=== PATIENT | female | born 1985 | race Caucasian/White ===

== ENCOUNTER 2017-10-01 14:58 | Emergency (ER) | payer OTHER ==
[~2017-10-01] VITALS: Ht 147.3 cm; Wt 49.9 kg
[~2017-10-01 14:58] MED LIST: BUTALB-APAP-CA1 EACH PO; SEIZURE MED
[2017-10-01] MEDS ORDERED: GERD MEDICATION (15:07)
[2017-10-01 15:17] LABS: ABSOLUTE BASOPHILS 0.1 thou/uL (0.0-0.2); ABSOLUTE EOSINOPHILS 0.2 thou/uL (0.0-0.7); ABSOLUTE LYMPHOCYTES 2.4 thou/uL (0.8-5.3); ABSOLUTE MONOCYTES 0.8 thou/uL (0.0-1.2); ABSOLUTE NEUTROPHILS 6.9 thou/uL (1.6-8.1); BASOPHILS 0.8 %; EOSINOPHILS 1.6 %; HEMATOCRIT 39.6 % (37.0-47.0); HEMOGLOBIN 13.6 gm/dL (12.0-15.0); MCH 33.2 pg (26.0-34.0); MCHC 34.3 g/dL (28.0-37.0); MCV 96.7 fL (80.0-100.0); MONOCYTES 7.9 %; MPV 8.3 fl. (7.2-11.1); NUCLEATED RBCS 0 /100WBC; PLATELET COUNT* 355 thou/uL (150-400); POLYS 66.7 %; RDW-CV 13.3 % (10.5-14.5); WBC 10.3 thou/uL (4.0-11.0)
[2017-10-01 15:35] LABS: ANION GAP 8 mmol/L (7-16); BUN 10 mg/dL (7-18); CALCIUM 8.5 mg/dL (8.5-10.1); CHLORIDE 103 mmol/L (98-107); CO2 30 mmol/L (21-32); CREATININE 0.9 mg/dL (0.6-1.3); GLUCOSE 93 mg/dL (70-99); POTASSIUM 3.3 mmol/L (3.5-5.1); SODIUM 141 mmol/L (136-145)
[2017-10-01 15:47] LABS: ALKALINE PHOSPHATASE 65 U/L (46-116); LIPASE 145 U/L (73-393); NT-PRO BRAIN NAT PEPTIDE 47 pg/mL (<300); SGOT 11 U/L (15-37); SGPT 16 U/L (30-65); TOTAL BILIRUBIN 0.3 mg/dL (<0.1-1.0); TOTAL PROTEIN 7.6 g/dL (6.4-8.2); TROPONIN-I LEVEL <0.06 ng/mL (<0.06)
[2017-10-01] MEDS ORDERED: NORCO 5-325 TA1 EACH PO (16:16)
[2017-10-01 16:28] VITALS: BP 128/82
--- NOTE | 2017-10-02 13:10 | EKG ---
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
== END 2017-10-01 16:28 | disposition home or self-care (01) ==
LOC: M.ERS 14:58
PROVIDERS: Emergency Medicine Emergency Medical Services
DX: R07.9 Chest pain, unspecified (principal); F17.210 Nicotine dependence, cigarettes, uncomplicated; R09.1 Pleurisy; K21.9 Gastro-esophageal reflux disease without esophagitis; G40.909 Epilepsy, unspecified, not intractable, without status epilepticus

== ENCOUNTER 2018-03-23 11:10 | Emergency (ER) | payer OTHER ==
[~2018-03-23] VITALS: Ht 147.3 cm; Wt 49.9 kg
[~2018-03-23 11:10] MED LIST changes: +GERD MEDICATION; +NORCO 5-325 TA1 EACH PO
[2018-03-23] MEDS ORDERED: SEIZURE MEDS PO (11:18)
[2018-03-23 11:51] LABS: ABSOLUTE BASOPHILS 0.1 thou/uL (0.0-0.2); ABSOLUTE EOSINOPHILS 0.5 thou/uL (0.0-0.7); ABSOLUTE LYMPHOCYTES 1.5 thou/uL (0.8-5.3); ABSOLUTE MONOCYTES 0.6 thou/uL (0.0-1.2); ABSOLUTE NEUTROPHILS 4.9 thou/uL (1.6-8.1); BASOPHILS 0.9 %; EOSINOPHILS 6.6 %; HEMATOCRIT 42.2 % (37.0-47.0); HEMOGLOBIN 14.1 gm/dL (12.0-15.0); MCH 32.6 pg (26.0-34.0); MCHC 33.3 g/dL (28.0-37.0); MONOCYTES 7.7 %; MPV 8.7 fl. (7.2-11.1); NUCLEATED RBCS 0 /100WBC; PLATELET COUNT* 342 thou/uL (150-400); POLYS 64.8 %; RBC 4.31 mil/uL (4.20-5.00); WBC 7.6 thou/uL (4.0-11.0)
[2018-03-23 11:52] LABS: URINE BLOOD 3+ (Negative); URINE CLARITY SL CLOUDY; URINE COLOR YELLOW; URINE GLUCOSE-RANDOM NEGATIVE (Negative); URINE KETONES NEGATIVE (Negative); URINE LEUKOCYTES-REFLEX TRACE (Negative); URINE PROTEIN 1+ (Negative); URINE SPECIFIC GRAVITY >= 1.030 (1.005-1.030)
[2018-03-23 11:56] LABS: ICTOTEST (BILI CONFIRMATORY) Negative (Negative); URINE BILIRUBIN 1+ (Negative); URINE NITRITE-REFLEX POSITIVE (Negative)
[2018-03-23 11:59] LABS: BACTERIA-REFLEX >30 Many /HPF (None Seen); MUCUS 4-6 Moderate strn/LPF (None Seen); SQUAMOUS >10 Many /LPF (0-3)
[2018-03-23 12:01] LABS: CALCIUM OXALATE 4-10 Moderate /LPF (None Seen); CASTS None Seen /LPF (None Seen); URINE RBC 3-10 Few /HPF (0-2)
[2018-03-23 12:08] LABS: CALCIUM 9.1 mg/dL (8.5-10.1); CREATININE 0.9 mg/dL (0.6-1.3); POTASSIUM 3.9 mmol/L (3.5-5.1)
[2018-03-23 12:12] LABS: ALBUMIN 3.6 g/dL (3.4-5.0); TOTAL BILIRUBIN 0.4 mg/dL (<0.1-1.0); TOTAL PROTEIN 7.2 g/dL (6.4-8.2)
[2018-03-23] MEDS ORDERED: PHENAZOPYRIDIN200 M2 PO (13:25)
[2018-03-23] MEDS ORDERED: BACTRIM DS TAB1 EACH PO (13:25)
[2018-03-23 13:34] VITALS: BP 108/53
== END 2018-03-23 13:34 ==
LOC: M.ERS 11:10
PROVIDERS: Emergency Medicine Emergency Medical Services
DX: N39.0 Urinary tract infection, site not specified (principal); K21.9 Gastro-esophageal reflux disease without esophagitis; G40.909 Epilepsy, unspecified, not intractable, without status epilepticus; F17.210 Nicotine dependence, cigarettes, uncomplicated

== ENCOUNTER 2018-06-06 20:45 | Emergency (ER) | payer OTHER ==
[~2018-06-06] VITALS: Ht 147.3 cm; Wt 50.5 kg
[~2018-06-06 20:45] MED LIST changes: +BACTRIM DS TAB1 EACH PO; +PHENAZOPYRIDIN200 M2 PO; +SEIZURE MEDS PO
[2018-06-06 21:00] LABS: ABSOLUTE BASOPHILS 0.1 thou/uL (0.0-0.2); ABSOLUTE EOSINOPHILS 0.5 thou/uL (0.0-0.7); ABSOLUTE LYMPHOCYTES 2.8 thou/uL (0.8-5.3); ABSOLUTE MONOCYTES 0.9 thou/uL (0.0-1.2); ABSOLUTE NEUTROPHILS 4.4 thou/uL (1.6-8.1); BASOPHILS 1.4 %; EOSINOPHILS 5.9 %; HEMATOCRIT 38.9 % (37.0-47.0); HEMOGLOBIN 13.2 gm/dL (12.0-15.0); LYMPHOCYTES 31.8 %; MCH 32.5 pg (26.0-34.0); MCV 95.5 fL (80.0-100.0); MONOCYTES 10.1 %; MPV 8.5 fl. (7.2-11.1); NUCLEATED RBCS 0 /100WBC; PLATELET COUNT* 346 thou/uL (150-400); POLYS 50.8 %; RBC 4.07 mil/uL (4.20-5.00); RDW-CV 13.9 % (10.5-14.5); WBC 8.7 thou/uL (4.0-11.0)
[2018-06-06 21:11] LABS: ANION GAP 9 mmol/L (7-16); BUN 12 mg/dL (7-18); CALCIUM 8.6 mg/dL (8.5-10.1); CHLORIDE 102 mmol/L (98-107); CO2 26 mmol/L (21-32); CREATININE 0.8 mg/dL (0.6-1.3); GLUCOSE 91 mg/dL (70-99); SODIUM 137 mmol/L (136-145)
[2018-06-06 21:13] LABS: PROTIME 10.3 Seconds (9.20-11.50)
[2018-06-06 21:16] LABS: POTASSIUM 2.5 mmol/L (3.5-5.1)
[2018-06-06 21:21] LABS: SALICYLATE 6.2 mg/dL (2.8-20.0)
[2018-06-06 21:22] LABS: ACETAMINOPHEN < 2 ug/mL (10-30); ALBUMIN 4.1 g/dL (3.4-5.0); ALCOHOL < 10 mg/dL (<10); ALKALINE PHOSPHATASE 70 U/L (46-116); NT-PRO BRAIN NAT PEPTIDE 36 pg/mL (<300); SGOT 20 U/L (15-37); SGPT 28 U/L (30-65); TOTAL BILIRUBIN 0.5 mg/dL (<0.1-1.0); TOTAL PROTEIN 7.5 g/dL (6.4-8.2); TROPONIN-I LEVEL <0.06 ng/mL (<0.06)
[2018-06-06 23:41] LABS: URINE BILIRUBIN NEGATIVE (Negative); URINE BLOOD TRACE (Negative); URINE CLARITY CLEAR; URINE COLOR YELLOW; URINE GLUCOSE-RANDOM NEGATIVE (Negative); URINE KETONES 1+ (Negative); URINE LEUKOCYTES-REFLEX NEGATIVE (Negative); URINE NITRITE-REFLEX NEGATIVE (Negative); URINE PROTEIN NEGATIVE (Negative); URINE SPECIFIC GRAVITY 1.015 (1.005-1.030)
[2018-06-06 23:49] LABS: AMP/METHAMP POSITIVE (Negative); BARBITURATES Negative (Negative); BENZODIAZEPINES Negative (Negative); COCAINE Negative (Negative); METHADONE Negative (Negative); OPIATES Negative (Negative); PCP Negative (Negative); THC Negative (Negative)
[2018-06-06] MEDS ORDERED: POTASSIUM20 PO (23:59)
[2018-06-07 00:33] VITALS: BP 113/62
--- NOTE | 2018-06-07 10:46 | EKG ---
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1985 Requested By: Isi Beltrán Order Number: [id number] MD: Ke Black Measurements Intervals [place] Rate: 83 P: 71 MD: 135 QRS: 56 QRSD: 86 T: 41 QT: 411 QTc: 483 Interpretive Statements Sinus rhythm RSR' in V1 or V2, probably normal variant Borderline prolonged QT interval Compared to ECG 10/01/2017 15:04:12 RSR' in V1 or V2 now present Electronically Signed On 06-07-2018 10:45:47 CDT by Ke Black [email or web address] <ELECTRONICALLY SIGNED> By: Ke Black MD, FACC 06/07/18 1045 56 56 Ke Black MD, [facility] /EPI
== END 2018-06-07 00:33 | disposition home or self-care (01) ==
LOC: M.ERS 20:45
PROVIDERS: Emergency Medicine
DX: E87.6 Hypokalemia (principal); F15.10 Other stimulant abuse, uncomplicated; K21.9 Gastro-esophageal reflux disease without esophagitis; F17.210 Nicotine dependence, cigarettes, uncomplicated

== ENCOUNTER 2019-04-27 23:03 | Emergency (ER) | payer OTHER ==
[~2019-04-27] VITALS: Ht 152.4 cm; Wt 61.2 kg
[~2019-04-27 23:03] MED LIST changes: +POTASSIUM20 PO
[2019-04-27 23:28] VITALS: BP 133/89
== END 2019-04-27 23:29 | disposition home or self-care (01) ==
LOC: M.ERS 23:03
DX: R56.9 Unspecified convulsions (principal); K21.9 Gastro-esophageal reflux disease without esophagitis; F17.210 Nicotine dependence, cigarettes, uncomplicated

== ENCOUNTER 2019-07-18 11:28 | Emergency (ER) | payer OTHER ==
[~2019-07-18] VITALS: Ht 147.3 cm; Wt 49.9 kg
[2019-07-18 11:30] VITALS: BP 119/76
--- NOTE | 2019-07-18 15:37 | EKG ---
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
== END 2019-07-18 12:02 | disposition left against medical advice (07) ==
LOC: M.ERS 11:28
DX: R07.89 Other chest pain (principal); F17.210 Nicotine dependence, cigarettes, uncomplicated; K21.9 Gastro-esophageal reflux disease without esophagitis

== ENCOUNTER 2019-11-17 18:17 | Emergency (ER) | payer OTHER ==
[~2019-11-17] VITALS: Ht 144.8 cm; Wt 54.4 kg
[2019-11-17 18:30] VITALS: BP 124/85
[2019-11-17 19:08] LABS: ABSOLUTE BASOPHILS 0.1 thou/uL (0.0-0.2); ABSOLUTE EOSINOPHILS 0.2 thou/uL (0.0-0.7); ABSOLUTE LYMPHOCYTES 2.5 thou/uL (0.8-5.3); ABSOLUTE MONOCYTES 0.8 thou/uL (0.0-1.2); ABSOLUTE NEUTROPHILS 4.9 thou/uL (1.6-8.1); HEMATOCRIT 32.4 % (37.0-47.0); HEMOGLOBIN 11.1 gm/dL (12.0-15.0); LYMPHOCYTES 29.6 %; MCH 30.7 pg (26.0-34.0); MCHC 34.2 g/dL (28.0-37.0); MCV 89.9 fL (80.0-100.0); MONOCYTES 9.7 %; MPV 7.9 fl. (7.2-11.1); NUCLEATED RBCS 0 /100WBC; PLATELET COUNT* 417 thou/uL (150-400); POLYS 57.7 %; RBC 3.61 mil/uL (4.20-5.00); RDW-CV 13.4 % (10.5-14.5); WBC 8.6 thou/uL (4.0-11.0)
[2019-11-17 19:24] LABS: CALCIUM 8.2 mg/dL (8.5-10.1); CREATININE 0.8 mg/dL (0.6-1.3)
[2019-11-17 19:29] LABS: ALBUMIN 3.6 g/dL (3.4-5.0); TOTAL BILIRUBIN 0.2 mg/dL (<0.1-1.0)
--- NOTE | 2019-11-18 11:36 | EKG ---
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1985 Requested By: Mckenna Núñez Order Number: [id number] : Paul Carpenter Measurements Intervals [place] Rate: 86 P: 57 ME: 110 QRS: 59 QRSD: 91 T: 49 QT: 380 QTc: 455 Interpretive Statements Sinus rhythm Borderline short ME interval Compared to ECG 07/18/2019 11:35:17 No significant changes Electronically Signed On 11-18-2019 11:35:51 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
== END 2019-11-17 19:40 | disposition left against medical advice (07) ==
LOC: M.ERS 18:17
PROVIDERS: Nurse Practitioner Family
DX: R07.89 Other chest pain (principal); K21.9 Gastro-esophageal reflux disease without esophagitis; F17.210 Nicotine dependence, cigarettes, uncomplicated

== ENCOUNTER 2020-01-14 23:52 | Emergency (ER) | payer OTHER ==
[~2020-01-14] VITALS: Ht 147.3 cm; Wt 48.8 kg
[2020-01-15 00:29] LABS: ABSOLUTE BASOPHILS 0.1 thou/uL (0.0-0.2); ABSOLUTE EOSINOPHILS 0.1 thou/uL (0.0-0.7); ABSOLUTE LYMPHOCYTES 1.5 thou/uL (0.8-5.3); ABSOLUTE MONOCYTES 0.8 thou/uL (0.0-1.2); ABSOLUTE NEUTROPHILS 7.6 thou/uL (1.6-8.1); BASOPHILS 0.5 %; EOSINOPHILS 0.7 %; HEMATOCRIT 35.5 % (37.0-47.0); HEMOGLOBIN 11.8 gm/dL (12.0-15.0); LYMPHOCYTES 14.9 %; MCH 28.8 pg (26.0-34.0); MCHC 33.2 g/dL (28.0-37.0); MCV 86.9 fL (80.0-100.0); MONOCYTES 8.5 %; NUCLEATED RBCS 0 /100WBC; PLATELET COUNT* 398 thou/uL (150-400); POLYS 75.4 %; RBC 4.09 mil/uL (4.20-5.00); RDW-CV 14.5 % (10.5-14.5)
[2020-01-15 00:37] LABS: CALCIUM 8.9 mg/dL (8.5-10.1); CREATININE 0.9 mg/dL (0.6-1.3); POTASSIUM 3.9 mmol/L (3.5-5.1)
[2020-01-15 00:41] LABS: TOTAL BILIRUBIN 0.3 mg/dL (<0.1-1.0); TOTAL PROTEIN 7.6 g/dL (6.4-8.2)
[2020-01-15] MEDS ORDERED: KEPPRA 500 MG500 MG PO (02:19)
[2020-01-15 03:11] VITALS: BP 102/66
--- NOTE | 2020-01-15 09:23 | EKG ---
[place] [address] ELECTROCARDIOGRAM REPORT Name: SILVIA VU Room: 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
== END 2020-01-15 03:12 | disposition home or self-care (01) ==
LOC: M.ERS 23:52
PROVIDERS: Emergency Medicine
DX: S00.83XA Contusion of other part of head, initial encounter (principal); S19.9XXA Unspecified injury of neck, initial encounter; R56.9 Unspecified convulsions; F15.10 Other stimulant abuse, uncomplicated; K21.9 Gastro-esophageal reflux disease without esophagitis; F17.210 Nicotine dependence, cigarettes, uncomplicated; X58.XXXA Exposure to other specified factors, initial encounter; Y93.89 Activity, other specified; Y92.89 Other specified places as the place of occurrence of the external cause; Y99.8 Other external cause status

== ENCOUNTER 2020-03-07 14:03 | Emergency (ER) | payer OTHER ==
[~2020-03-07] VITALS: Ht 147.3 cm; Wt 49.7 kg
[~2020-03-07 14:03] MED LIST changes: +KEPPRA 500 MG500 MG PO
[2020-03-07 14:39] LABS: ABSOLUTE BASOPHILS 0.1 thou/uL (0.0-0.2); ABSOLUTE EOSINOPHILS 0.1 thou/uL (0.0-0.7); ABSOLUTE MONOCYTES 1.3 thou/uL (0.0-1.2); ABSOLUTE NEUTROPHILS 12.1 thou/uL (1.6-8.1); BASOPHILS 0.5 %; EOSINOPHILS 0.8 %; HEMATOCRIT 29.8 % (37.0-47.0); HEMOGLOBIN 9.7 gm/dL (12.0-15.0); LYMPHOCYTES 12.7 %; MCH 28.1 pg (26.0-34.0); MCHC 32.6 g/dL (28.0-37.0); MCV 86.2 fL (80.0-100.0); MONOCYTES 8.2 %; MPV 8.2 fl. (7.2-11.1); NUCLEATED RBCS 0 /100WBC; PLATELET COUNT* 477 thou/uL (150-400); POLYS 77.8 %; RBC 3.46 mil/uL (4.20-5.00); RDW-CV 16.6 % (10.5-14.5); WBC 15.6 thou/uL (4.0-11.0)
[2020-03-07 14:44] LABS: CALCIUM 8.4 mg/dL (8.5-10.1); POTASSIUM 3.4 mmol/L (3.5-5.1)
[2020-03-07 14:49] LABS: ALBUMIN 3.6 g/dL (3.4-5.0); TOTAL BILIRUBIN 0.6 mg/dL (<0.1-1.0); TOTAL PROTEIN 7.9 g/dL (6.4-8.2)
[2020-03-07 16:06] LABS: URINE BLOOD 2+ (Negative); URINE CLARITY CLEAR; URINE COLOR YELLOW; URINE GLUCOSE-RANDOM NEGATIVE (Negative); URINE KETONES 2+ (Negative); URINE LEUKOCYTES-REFLEX NEGATIVE (Negative); URINE NITRITE-REFLEX NEGATIVE (Negative); URINE PROTEIN NEGATIVE (Negative); URINE SPECIFIC GRAVITY >= 1.030 (1.005-1.030); URINE UROBILINOGEN 0.2 E.U./dl (0.2-1.0)
[2020-03-07 16:08] LABS: ICTOTEST (BILI CONFIRMATORY) Negative (Negative); URINE BILIRUBIN 1+ (Negative)
[2020-03-07 16:18] LABS: SQUAMOUS 0-3 Few /LPF (0-3); URINE RBC 3-10 Few /HPF (0-2); URINE WBC-REFLEX 6-15 Few /HPF (0-5)
[2020-03-07 16:19] LABS: CRYSTALS None Seen /LPF (None Seen); HYALINE CASTS 4-10 Moderate /LPF (None Seen); MUCUS >6 Heavy strn/LPF (None Seen)
[2020-03-07 17:04] LABS: AMP/METHAMP POSITIVE (Negative); BARBITURATES Negative (Negative); BENZODIAZEPINES Negative (Negative); COCAINE Negative (Negative); METHADONE Negative (Negative); OPIATES Negative (Negative); PCP Negative (Negative); THC Negative (Negative)
[2020-03-07] MEDS ORDERED: ULTRAM 50MG TAB50 MG PO (17:49)
[2020-03-07] MEDS ORDERED: NITROFURANTOIN100 MG PO (17:49)
[2020-03-07 18:10] VITALS: BP 111/54
== END 2020-03-07 18:10 | disposition home or self-care (01) ==
LOC: M.ERS 14:03
PROVIDERS: Personal Emergency Response Attendant
DX: F15.129 Other stimulant abuse with intoxication, unspecified (principal); R10.32 Left lower quadrant pain; R55 Syncope and collapse; K21.9 Gastro-esophageal reflux disease without esophagitis; F17.210 Nicotine dependence, cigarettes, uncomplicated

== ENCOUNTER 2021-07-22 11:34 | Emergency (ER) | payer OTHER ==
[~2021-07-22 11:34] MED LIST changes: +NITROFURANTOIN100 MG PO; +ULTRAM 50MG TAB50 MG PO
== END 2021-07-22 11:41 | disposition left against medical advice (07) ==
LOC: M.ERS 11:34
DX: K21.9 Gastro-esophageal reflux disease without esophagitis (principal); F17.210 Nicotine dependence, cigarettes, uncomplicated; Z79.899 Other long term (current) drug therapy